=== PATIENT | male | born 1965 | race Caucasian/White ===

== ENCOUNTER → 2023-04-05 11:15 | Outpatient (REF) | payer BC, SELFPAY ==
[2023-04-07 20:09] LABS: PSA, Ultrasensitive <0.01 ng/mL (0.00-4.00)
== END ==
LOC: HWLAB 11:15
PROVIDERS: ATTENDING PHYSICIAN Urology; FAMILY PHYSICIAN Family Medicine
DX: C61 Malignant neoplasm of prostate (principal)
CPT/HCPCS: 36415; 84153

== ENCOUNTER → 2023-10-07 08:33 | Outpatient (REF) | payer BC, SELFPAY ==
[2023-10-07 10:51] LABS: HDL Cholesterol 66 mg/dl; LDL Cholesterol, Calculated 140 mg/dl; Total Cholesterol 229 mg/dl (50-199); Triglyceride 115 mg/dl (10-149); Very Low Density Lipoprotein 23 mg/dl (0-30)
== END ==
LOC: HWLAB 08:33
PROVIDERS: ATTENDING PHYSICIAN Family Medicine
DX: Z00.00 Encounter for general adult medical examination without abnormal findings (principal)
CPT/HCPCS: 36415; 80061

== ENCOUNTER → 2024-03-30 09:38 | Outpatient (REF) | payer BC, SELFPAY ==
[2024-04-01 16:35] LABS: PSA, Ultrasensitive <0.01 ng/mL (0.00-4.00)
== END ==
LOC: HWLAB 09:38
PROVIDERS: ATTENDING PHYSICIAN Urology; FAMILY PHYSICIAN Family Medicine
DX: C61 Malignant neoplasm of prostate (principal)
CPT/HCPCS: 36415; 84153